=== PATIENT | male | born 1985 | race Caucasian/White ===

== ENCOUNTER 2021-05-31 19:17 | Emergency (ER) | payer OTHER, SELFPAY ==
[2021-05-31 19:17] VITALS: BP 153/90; PULSE 104; RESP 24; TEMP 36.3; O2SAT 97; BMI 35.5
--- NOTE | 2021-05-31 19:20 | ED.RN ---
pt refusing to stay laying down to the point of being belligerent. multiple staff in room trying distraction techniques.
--- NOTE | 2021-05-31 19:31 | ED.RN ---
PT continues to demand neck brace to come off. pt has removed himself from backboard, unable to redirect back onto board. PT continues to want to get up out of bed. PT c/o nausea but doesn't want us to hold a emesis bag up. PT is confused on time. Pt states he knows his back and neck aren't broken. IV placed, continue to wait for MD evaluation.
--- NOTE | 2021-05-31 19:38 | ED.RN ---
PT CONTINUES TO PULL AT C-COLLAR. PT IS REDIRECTED. PT EDUCATED ON NEED FOR C-COLLAR TO PROTECT NECK, BACK AND PARALYSIS.
[2021-05-31 19:45] VITALS: BP 148/97; PULSE 97; RESP 20
--- NOTE | 2021-05-31 19:48 | CT_ITS ---
We are attempting to reach an attending provider to discuss findings. An addendum with communication details will be sent when the communication is complete. STUDY: CT BRAIN WITHOUT CONTRAST REASON FOR EXAM: Male, 36 years old. head injury RADIATION DOSAGE (If Supplied By Facility): CTDIvol = ( 44.99 ) mGy, DLP = ( 846.73 ) mGycm TECHNIQUE: Transaxial CT imaging of the brain was performed without administration of intravenous contrast material. Individualized dose optimization techniques were used for this CT. COMPARISON: No relevant priors. FINDINGS: There is soft tissue swelling of the anterior upper head. There is nondisplaced nondepressed fracture through the right frontal bone extending up to the vertex of the skull. There are fractures through the right temporal bone. There is evidence for subarachnoid hemorrhage along the interhemispheric fissure, over the tentorium, and both sylvian fissures, and especially under the inferior surfaces of the frontal lobes. There are probable hemorrhagic contusions of the inferior bilateral frontal lobes. There is suggestion of decreased mansfield-white differentiation diffusely. There is effacement of sulci. These findings can be seen with global, anoxic brain injury. CT/Brain/Head without Contrast IMPRESSION: Diffuse subarachnoid blood. Probable hemorrhagic contusions of the inferior aspects of both frontal lobes. Skull fractures. Possible diffuse brain injury. Electronically Signed: Paresh Cerna MD at 21:24 EDT , Service support ,
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
[2021-05-31 20:01] LABS: Absolute Lymphocyte Count 4.29 X10^3/uL (0.83-4.51); Absolute Neutrophil Count 4.9 X10^3/uL (2.0-7.7); Basophil# 0.05 X10^3/uL; Basophil% 0.5 % (0-1); Eosinophil# 0.12 X10^3/uL; Eosinophils% 1.1 % (0-5); Lymphocyte # 4.29 X10^3/ul (0.83-4.51); Lymphocyte % 40.6 % (19-41); Mean Corp Hgb Conc 33.3 g/dL (32-36); Mean Corpuscular Hgb 29.7 pg (27.0-32.0); Mean Corpuscular Volume 89.1 fL (80-94); Monocyte# 1.12 X10^3/uL; Monocyte% 10.6 % (0-10); NRBC Flagged by Analyzer 0 % (0-5); Neutrophil # 4.89 X10^3/uL (2.7-7.7); Neutrophil % 46.3 % (47-70); Platelet Count 266 K/mm3 (150-450); RBC Distribution Width CV 12.7 % (11.6-14.6); RBC Distribution Width SD 41.6 fl (35.1-43.9); Red Blood Count 5.05 M/mm3 (4.6-6.2); White Blood Count 10.6 K/mm3 (4.4-11.0)
[2021-05-31] MEDS: 0.9% Normal Saline 1,000 ML 999 ML IV (20:06)
[2021-05-31 20:07] VITALS: BP 155/93; PULSE 97; RESP 29; O2SAT 100
[2021-05-31 20:20] LABS: International Normalized Ratio 1.1; Partial Thromboplast Time 25.2 Seconds (24.1-36.2); Prothrombin Time (Protime)PT. 13.1 SECONDS (11.7-14.9)
[2021-05-31 20:21] LABS: ALB/GLOB Ratio 1.1 RATIO (0.9-2.4); AST(SGOT) 34 U/L (15-37); Alanine Aminotransfer ALT/SGPT 46 U/L (16-61); Albumin, Serum 3.9 g/dL (3.2-5.0); Alkaline Phosphatase 53 U/L (45-117); Anion Gap 11 (5-15); BUN 14 mg/dL (7-18); BUN/Creat Ratio 10.6 RATIO (10-20); Calcium,Total 8.7 mg/dL (8.5-10.1); Chloride 105 mmol/L (98-107); Creatinine, Serum 1.32 mg/dL (0.70-1.30); EST Glomerular Filtration Rate 65 mL/min (>60); Est Glom Filt Rate - Afr Amer 79 mL/min (>60); Estimated Creatinine Clearance 102.53 ml/min; Globulin 3.7 g/dL (2.2-4.2); Glucose 119 mg/dL (74-106); Potassium 3.3 mmol/L (3.5-5.1); Protein, Total 7.6 g/dL (6.4-8.2); Sodium Level 141 mmol/L (136-145)
--- NOTE | 2021-05-31 20:28 | ED.RN ---
PT UNABLE TO BE REDIRECTED. WHILE THIS RN WAS GETTING A SITTER, PT PULLED C-COLLAR OFF. FAMILY WAS MADE AWARE AFTER CT TO HELP REDIRECT AND KEEP C-COLLAR ON. MOM AND AT BEDSIDE UNDERSTAND HE NEED FOR IT TO BE ON BUT WOULD PREFER IT OF FOR PATIENT COMFORT. GEETAFRAN GIVEN. SITTER AT BEDSIDE.
[2021-05-31] MEDS: Ondansetron 4 MG/2 ML Vial IV (20:29)
--- NOTE | 2021-05-31 20:44 | ED.RN ---
SPOKE WITH CURTAIN INSPECT[employer] AT [facility] WHO WOULD LIKE PATIENT DRUG TESTED AT THIS TIME FOR WORKERS COMP
[2021-05-31 21:02] VITALS: BP 144/95; PULSE 88; RESP 22; O2SAT 97
--- NOTE | 2021-05-31 21:04 | ED.RN ---
Clothes removed, bagged and given to .
== END 2021-05-31 21:06 | disposition short-term general hospital (02) ==
PROVIDERS: Emergency Provider Emergency Medicine
DX: S09.90XA Unspecified injury of head, initial encounter (principal); I62.9 Nontraumatic intracranial hemorrhage, unspecified; V89.2XXA Person injured in unspecified motor-vehicle accident, traffic, initial encounter; Y93.9 Activity, unspecified; Y92.89 Other specified places as the place of occurrence of the external cause; Y99.8 Other external cause status
CPT/HCPCS: 70450; 71045; 72125; 74177; 80053; 85025; 85610; 85730; 87426; 96361; 96374; 99285; J7030; Q9967; A4216; J2405

== ENCOUNTER → 2024-12-25 | Outpatient (CLI) | payer OTHER, SELFPAY ==
[2024-12-25 16:42] LABS: Cholesterol 179 mg/dL (<=200); High Density Lipoprotein 38 mg/dL; Low Density Lipoprotein Calc. 109 mg/dL; Triglycerides 161 mg/dL; Very Low Density Lipoprotein 32 mg/dL (5-40)
[2024-12-25 18:01] LABS: ALB/GLOB Ratio 1.2 RATIO (0.9-2.4); AST(SGOT) 36 U/L (<=37); Alanine Aminotransfer ALT/SGPT 48 U/L (<=46); Albumin, Serum 4.3 g/dL (3.5-5.0); Alkaline Phosphatase 64 U/L (40-129); Anion Gap 17 (5-15); BUN 11 mg/dL (4-19); BUN/Creat Ratio 10.4 RATIO (10-20); Calcium,Total 9.5 mg/dL (7.6-11.0); Carbon Dioxide 20.4 mmol/L (21.0-32.0); Chloride 100 mmol/L (98-108); Creatinine, Serum 1.02 mg/dL (0.70-1.20); EST Glomerular Filtration Rate 96 (>60); Globulin 3.5 g/dL (2.2-4.2); Glucose 79 mg/dL (70-99); Potassium 3.8 mmol/L (3.3-5.1); Protein, Total 7.8 g/dL (5.9-8.4); Sodium Level 138 mmol/L (133-145); Total Bilirubin 0.45 mg/dL (0.00-1.30)
== END | disposition home or self-care (01) ==
LOC: MFPLAB 08:28
PROVIDERS: Referring Provider Family Medicine; Visit Provider Family Medicine
DX: Z13.1 Encounter for screening for diabetes mellitus (principal); Z13.220 Encounter for screening for lipoid disorders
CPT/HCPCS: 36415; 80053; 80061